=== PATIENT | female | born 1985 | race Caucasian/White ===

== ENCOUNTER → 2019-10-17 | Outpatient (CLI) | payer BC ==
[~2019-10-17] MED LIST: MOTRIN800 MG PO; NKHM PO; PERCOCET 325 MG1 TA2 PO
== END | disposition home or self-care (01) ==
LOC: RAD 14:17
DX: M54.9 Dorsalgia, unspecified (principal)

== ENCOUNTER 2022-02-04 14:05 | Emergency (ER) | payer BC ==
[~2022-02-04] VITALS: Wt 79.4 kg
[2022-02-04] MEDS ORDERED: METFORMIN HYD1000 MG PO (16:09)
[2022-02-04] MEDS ORDERED: METFORMIN HYDR500 MG PO (16:10)
[2022-02-04] MEDS ORDERED: IBU800 MG PO (18:40)
[2022-02-04] MEDS ORDERED: PREDNISONE20 M1 PO (18:40)
[2022-02-04] MEDS ORDERED: CYCLOBENZAPRINE10 MG PO (18:40)
== END 2022-02-04 18:56 | disposition home or self-care (01) ==
LOC: ED 14:05
DX: M54.41 Lumbago with sciatica, right side (principal); M54.42 Lumbago with sciatica, left side; M51.26 Other intervertebral disc displacement, lumbar region; Z90.89 Acquired absence of other organs